=== PATIENT | male | born 1975 | race Caucasian/White ===

== ENCOUNTER 2017-01-04 13:04 | Day surgery (SDC) | payer OTHER ==
[2017-01-04] VITALS (9 sets, daily range): BP systolic 122–150; BP diastolic 67–78; PULSE 55–98; RESP 13–19; O2SAT 96–98
[~2017-01-04] VITALS: Ht 190.5 cm; Wt 153.0 kg
[~2017-01-04 13:04] MED LIST: ASPI325T32 PO; CeFAZolin Inj 3 GM in IV Premix 1 EACH IV ONE; HYDR-4003 PO; LISI40TA PO; METF500T4 PO; SENN17.24 PO
[2017-01-04] MEDS ORDERED: Ketamine 10 mg/mL 20 mL Inj ONE (13:05)
[2017-01-04] MEDS ORDERED: Propofol 10,000 mCg/mL 20 mL Inj ONE (13:05)
[2017-01-04] MEDS ORDERED: Ondansetron 2 mg/mL 2 mL Inj ONE (13:05)
[2017-01-04] MEDS ORDERED: MetoCLOpramide 5 mg/mL 2 mL Inj ONE (13:05)
[2017-01-04] MEDS ORDERED: Lidocaine PF 1% 30 mL Inj ONE (13:05)
[2017-01-04] MEDS ORDERED: Glycopyrrolate 0.2 mg/mL 5 mL Inj ONE (13:05)
[2017-01-04] MEDS: Lactated Ringer's 1,000 ML IV SCH ×2 (13:08→14:44)
[2017-01-04] MEDS ORDERED: CeFAZolin Inj 3 Gm/ D5W 50 mL Bag IV ONE (14:09)
--- NOTE | 2017-01-04 14:33 | PCM.HPANE ---
Patient Data Date of Service: Jan 04, 2017 Surgeon Admitting Provider: Attending Provider:Sahara Ceballos MD Primary Care Physician:Niles Ko Other Provider:Gracie Torrez Anesthesia Reason for Visit Family Planning Ht/WT & BMI Height (Feet): 6 Height (Inches): 3 Weight (Kilograms): 153 Body Mass Index 41.00 Allergies Coded Allergies: No Known Allergies (Unverified , 01/04/17) Past Anesthesia History Anesthesia History: Denies:: Anesthesia Reactions, Fam Anesthesia Reaction, Fam Malignant Hypertherm, Malignant Hyperthermia Diabetes History Hx Diabetes?: Yes Type of Diabetes: Type II Glycemic Control: Oral Medication MRSA MRSA: No Medications Blood Thinner: Aspirin Last Dose Blood Thinner: Dec 31, 2016 Hypertension Medication: Yes Home Meds Incl Beta Anand: No Reported Medications Sennosides (Senokotxtra)17.2 Mg Xynczh71.2 Mg PO HS 01/01/17 Hydrocodone-Acetaminophen 5-325 mg 1 Each Tablet1 Tablet PO Q4H PRN For Pain Ref 0 01/01/17 Metformin 500 Mg [id number] Mg PO BID Ref 0 01/01/17 Lisinopril 40 Mg [id number] Mg PO DAILY 30 Days Ref 0 01/01/17 Aspirin 325 Mg [id number] Mg PO DAILY #1 BOTTLE 01/01/17 History History of ENT Problems?: Yes HEENT History: Positive for:: Sinus Problem (SEASONAL ALLERGIES) Hx of Heart Problems?: Yes Cardiovascular History: Positive for:: Hypertension Denies:: Chest Pain Congestive Heart Failure Other Cardiac History: no SOB Hx of Respiratory Problem?: No Respiratory History: Denies:: Asthma COPD Emphysema Oxygen Administration Tuberculosis Use of C-PAP Machine Hx Neurologic Problems?: No Neurological History: Denies:: CVA Headaches Multiple Sclerosis Parkinson's Disease Seizures Hx of GI Problems?: No Hx of Problems?: No Male Hx: Positive for:: Testicular Surgery (01/2017) Denies:: Prostate Problems Scrotal Mass Skin History: Denies:: History Skin Disorders? Pressure Ulcers Hx Musculoskeletal Problems?: No Musculoskeletal History: Denies:: Back Injury Musculoskeletal Trauma Osteoarthritis Systemic Lupus Hx of Psycho/Social Problems?: No Hx Surgeries?: Yes (WISDOM TEETH, BREAST REDXN) Hx Any Other Health Problems?: No Other History: Denies:: Cancer Hx Diabetes: Yes Hx Alcohol Use: Yes (OCCASIONAL)Hx Substance Use: No Smoking Status: Former Smoker Have You Smoked inLast 12 mo: No Stop/Bang Treated for Sleep Apnea?: No Do You Have a CPAP Machine?: No S-Snoring: Do You Snore Loudly: Yes T-Tired: feel tired, fatigued: No O-Obsered: Observed not breath: No P-Blood Pressure: treated: Yes B- Body Mass Index > 35 kg/m2: Yes A- Age over 50: No N- Neck Large Circumference: Yes G- Gender Male: Yes MATT Total Score: 5 MATT Risk Assessment: High Risk, =/>3 Yes MATT Category 2: Yes Risk Assessment Category Category 1A: Patient has history of documented sleep apnea, and HAS NOT received any narcotic, sedative or anesthesia administration during this stay. Category 1B: Patient has history of documented sleep apnea, and HAS received any narcotic , sedative or anesthesia administration during this stay Category 2: Patient has SUSPECTED Obstructive Sleep Apnea, and HAS received any narcotic , sedative or anesthesia administration during this stay. Category 3: Patient has SUSPECTED Obstructive Sleep Apnea and HAS NOT received narcotic, sedative or anesthesia administration during this stay. Category 4: Outpatient in Procedural Areas with known sleep apnea or who screen positive for High Risk via the STOP/BANG questionnaire. Exam Exam Vital Signs Vital Signs Date Time Temp Pulse Resp B/P Pulse Ox O2 Delivery O2 Flow Rate FiO2 01/04/17 13:37 36.8 75 18 129/76 98 Room Air General Appearance: Alert, Oriented X3, Cooperative, No Acute Distress HEENT/AIRWAY: MP 3, Neck Movement (FROM), Mouth Opening (3), Other (TMD3) Lungs: Normal Air Movement Heart: Exam Unremarkable, Regular Rate/Rhythm, Normal S1, Normal S2, No Murmurs /Rubs/Gallops Meds/Labs/Diagnostics Admission Meds Current Medications Lactated Ringer's (Lr) 1,000 ml @ 120 mls/hr Q8H20M IV Last administered on t 13:08; Start 01/04/17 at 05:00; Stop 01/04/17 at 13:30; Status DC Plan Impression Patient chart reviewed, patient interviewed and anesthestic plan with risks, benefits, and alternatives discussed, and informed consent obtained. NPO Status: 2200 01/03 ASA Physical Status: ASA2 Mod Systemic Disease Anesthetic Plan: TIVA Bene/Risks/Altern/Consents: Yes HP Complete Prior to Induction: Yes Winston Villasenor MD Jan 04, 2017 14:33
[2017-01-04] MEDS ORDERED: Lactated Ringer's 1,000 ML IV SCH (14:41)
[2017-01-04] MEDS ORDERED: Lactated Ringer's 500 ML IV PRN (14:41)
[2017-01-04] MEDS ORDERED: Ondansetron 2 mg/mL 2 mL Inj IVPUSH PRN (14:45)
[2017-01-04] MEDS ORDERED: EPHEDrine Sulfate 50 mg/mL Inj IVPUSH PRN (14:45)
[2017-01-04] MEDS ORDERED: Dexamethasone 4 mg/mL Inj IVPUSH PRN (14:45)
[2017-01-04] MEDS ORDERED: HYDROmorphone 1 mg/mL Inj IVPUSH PRN (14:45)
[2017-01-04] MEDS ORDERED: MetoCLOpramide 5 mg/mL 2 mL Inj IVPUSH PRN (14:45)
[2017-01-04] MEDS ORDERED: fentaNYL-PF 50 mCg/mL 2 mL Inj IVPUSH PRN (14:45)
[2017-01-04] MEDS ORDERED: Phenylephrine 10,000 mCg/mL Inj IVPUSH PRN (14:45)
[2017-01-04] MEDS ORDERED: Lidocaine PF 1% 30 mL Inj INFILTRATE ONE (15:00)
[2017-01-04] MEDS ORDERED: HYDROcodone-APAP 5-325 mg Tablet PO PRN (15:35)
--- NOTE | 2017-01-04 15:55 | OP ---
[address] [address] OPERATIVE REPORT PATIENT: RAE SHARMA : 1975 MR#: [id number] ADMIT: 01/04/2017 JOB ID: [id number] DATE OF SURGERY: 01/04/2017 PREOPERATIVE DIAGNOSIS(ES): Desires vasectomy. POSTOPERATIVE DIAGNOSIS(ES): Desires vasectomy. PROCEDURE PERFORMED: Bilateral vasectomy. SURGEON: Sahara Ceballos MD. SECURITY TECH: None. FINDINGS: Bilateral vas deferens. ANESTHESIA: 1. Monitored anesthesia care. 2. Lidocaine 1% plain locally. ESTIMATED BLOOD LOSS: 5 mL. DRAINS: None. SPECIMEN: Bilateral vas deferens segments. COMPLICATIONS: None. CONDITION: Stable. INDICATION FOR PROCEDURE: The patient is a 41-year-old gentleman who could not tolerate vasectomy in clinic. He wished to proceed to the operating room. DESCRIPTION OF THE PROCEDURE: After informed consent was obtained, patient was taken to the operating room. Time-out was performed, identifying correct patient, surgical site, and procedure. Monitored anesthesia care was induced. His genitals were then prepped and draped in usual sterile fashion. Intravenous antibiotics were given just prior to start of procedure. The left-sided vas deferens was difficult to palpate. There was quite a bit of fascia surrounding it. Nevertheless, it was grasped after instilling 1% plain lidocaine subcutaneously. Penetrating towel clamps were used to isolate it through the skin and a 15 blade used to incise the skin. The vas was then isolated again with towel clamps and 2-0 Vicryl was used at the proximal and distal ends for ligation. A segment of vas deferens was cut away and the proximal and distal ends were then cauterized with Bovie electrocautery. The same proceeded for the right vas deferens. Both skin incisions were closed with 3-0 Chromic in interrupted fashion x2, and bacitracin was placed over the wound with Kerlix and fluff gauze. Scrotal support was placed on the patient's genitals and buttocks. The patient was then taken to the PACU in good and stable condition. [facility]
--- NOTE | 2017-01-04 18:22 | PCM.ANEP1 ---
Post Anesthesia Phase 1 PACU Phase 1 Assessment Date of Service: Jan 04, 2017 Vital Signs Vital Signs Date Time Temp Pulse Resp B/P Pulse Ox O2 Delivery O2 Flow Rate FiO2 01/04/17 16:24 57 16 137/72 97 Room Air 01/04/17 15:58 36.5 58 16 133/67 96 Room Air 01/04/17 15:55 55 17 122/69 98 Room Air 01/04/17 15:50 37.4 55 19 133/68 96 Room Air 01/04/17 15:45 57 18 138/67 96 Room Air 01/04/17 15:40 62 18 150/75 96 Room Air 01/04/17 15:35 61 13 129/68 96 Room Air 01/04/17 15:30 37.3 98 14 135/78 98 Simple Mask 8 01/04/17 13:37 36.8 75 18 129/76 98 Room Air Anesthetic Administered: TIVA Level of Alertness: Awake, talking CAIN's with Equal Strength: Yes Pain: No Pain Scale Score: 0 Nausea or Vomiting: No Oxygen Delivery: Simple Mask Lungs: Normal Air Movement Winston Villasenor MD Jan 04, 2017 18:22
--- NOTE | 2017-01-04 18:23 | PCM.ANEP2 ---
Post Anesthesia Evaluation ASA/CMS Post Anesthesia VS in Patient's Normal Range?: Yes Resp Stable; Airway Patent?: Yes CV Function & Hydration Stable: Yes Mental Status Recovered?: Yes Pain control Satisfactory?: Yes N/V Control Satisfactory?: Yes Winston Villasenor MD Jan 04, 2017 18:23
--- NOTE | 2017-01-08 12:46 | PATH ---
SURGICAL PATHOLOGY Attending Physician:Sahara Ceballos, CASE STATUS: Signed Out PATIENT NAME: RAE SHARMA PID: [id number] : 1975 DATE COLLECTED:01/04/2017 00:00 SPECIMEN: Vas Deferens, Sterilization CLINICAL HISTORY: FAMILY PLANNING 1). LEFT & RIGHT VAS DEFERENS SEGMENTS FINAL DIAGNOSIS: 1.LEFT AND RIGHT VAS DEFERENS SEGMENTS: TWO SEGMENTS OF VAS DEFERENS, IDENTIFIED. ICD10 CODE Z30.2 GROSS DESCRIPTION: The specimen is received in one formalin filled container labeled with the patient's name, sublabeled "left and right vas deferens segments" and consists of 2 cylindrical shaped portions of tissue. The first measures 0.3 x 0.3 x 0.3 CM. The specimen is inked blue and entirely submitted in one cassette to be possibly further sectioned at the time of embedding. The second piece measures 0.3 CM in diameter by 0.6 CM in length. The specimen is inked black and entirely submitted in the same cassette to be possibly further sectioned at the time embedding. 01/05/2017 [facility] DES[facility]: See diagnosis. ICD-9 CODES: CPT CODES: 1: 32964 Electronically Signed Out Handy Pepper MD [facility] [address], [place] [address] Technical component performed at [facility], [facility] [address], [address]
== END 2017-01-04 23:59 | disposition home or self-care (01) ==
LOC: SAS 13:04
PROVIDERS: ATTEND Urology
DX: Z30.2 Encounter for sterilization (principal); I10 Essential (primary) hypertension; E11.9 Type 2 diabetes mellitus without complications; E66.9 Obesity, unspecified; J30.2 Other seasonal allergic rhinitis; Z79.82 Long term (current) use of aspirin; Z87.891 Personal history of nicotine dependence; Z79.84 Long term (current) use of oral hypoglycemic drugs; Z68.41 Body mass index [BMI] 40.0-44.9, adult
CPT/HCPCS: 55250; J0690; J2250; J2405; J2765; J7120